=== PATIENT | female | born 1960 | race African-American/Black ===

== ENCOUNTER 2021-01-07 12:30 | Emergency (ER) | payer BC ==
[2021-01-07 13:06] VITALS: TEMP 98.6; BMI 31.0
[2021-01-07] MEDS ORDERED: morphine CARPU-JECT 4 MG/1 ML DISP.SYRIN IVPUSH ONE ×2 (13:11→14:17)
[2021-01-07] MEDS ORDERED: morphine SULFATE 4 MG/ML VIAL ONE ×2 (13:56→14:23)
[2021-01-07 14:12] LABS: BASO % 0.4 % (0-2.0); EOS % 1.7 % (0-4.5); HEMATOCRIT 37.7 % (32.4-45.2); HEMOGLOBIN 12.7 GM/dL (10.7-15.3); LYMPH % 13.7 % (8-40); MCHC 33.8 g/dl (32.0-36.0); MEAN CELL VOLUME 91.6 fl (80-96); NEUT % 77.2 % (42.8-82.8); PLATELET COUNT 407 10^3/uL (134-434); RBC 4.11 M/mm3 (3.60-5.2); RDW 13.5 % (11.6-15.6); WHITE BLOOD COUNT 10.9 K/mm3 (4.0-10.0)
[2021-01-07 14:19] LABS: INR 0.89 (0.83-1.09)
[2021-01-07 14:37] LABS: CALCIUM 9.4 mg/dL (8.5-10.1)
[2021-01-07 14:38] LABS: ALBUMIN 3.3 g/dl (3.4-5.0); BLOOD UREA NITROGEN 12.2 mg/dL (7-18)
[2021-01-07 14:43] LABS: BILIRUBIN,TOTAL 0.7 mg/dL (0.2-1); TOT PROT 8.4 g/dl (6.4-8.2)
[2021-01-07] MEDS ORDERED: KETAMINE HCL 200 MG/20 ML VIAL IVPUSH ONE (14:51)
[2021-01-07] MEDS ORDERED: KETAMINE HCL 200 MG/20 ML VIAL ONE (14:55)
[2021-01-07] MEDS ORDERED: CEFAZOLIN 1 GM/D5W 1 GM/50 ML BAG ONE (15:09)
[2021-01-07] MEDS ORDERED: VANCOMYCIN 1 GRAM (PRE-DOCKED) 1,000 MG/250 ML BAG IVPB ONE (15:13)
[2021-01-07] MEDS ORDERED: VANCOMYCIN 1 GM in D5W (PRE-DOCKED) 1,000 MG/250 ML IVPB ONE (15:15)
[2021-01-07 21:20] VITALS: BP 162/101; PULSE 102
== END 2021-01-07 21:15 | disposition short-term general hospital (02) ==
LOC: JER 12:30
PROC: 3E033GC Introduction of Other Therapeutic Substance into Peripheral Vein, Percutaneous Approach (ICD-10-PCS; principal; 2021-01-07)
DX: S82.851A Displaced trimalleolar fracture of right lower leg, initial encounter for closed fracture (principal); W18.2XXA Fall in (into) shower or empty bathtub, initial encounter
CPT/HCPCS: 36415; 73610-TC-RT-FY; 73630-TC-RT-FY; 80053; 85025; 85610; 86850; 86900; 86901; 99284-25

== ENCOUNTER 2024-02-16 04:11 | Day surgery (SDC) | payer BC ==
[2024-02-11 14:41] VITALS: BMI 34.0
[2024-02-16] MEDS ORDERED: ROCURONIUM BROMIDE 50 MG/5 ML SYRINGE ONE (08:04)
[2024-02-16] MEDS ORDERED: MIDAZOLAM HCL 2 MG/2 ML SINGLE DOSE VIAL ONE ×2 (08:04→08:05)
[2024-02-16] MEDS ORDERED: ETOMIDATE 20 MG/10 ML VIAL IVPUSH ONE (08:08)
[2024-02-16] MEDS ORDERED: ACETAMINOPHEN 325 MG TABLET (FP) PO PRN (08:25)
[2024-02-16] MEDS ORDERED: IBUPROFEN 400 MG TABLET (FP) PO PRN (08:25)
[2024-02-16] MEDS ORDERED: SUGAMMADEX SODIUM 200 MG/2 ML VIAL ONE ×2 (09:04→09:14)
[2024-02-16 11:03] VITALS: RESP 18
[2024-02-16 12:27] VITALS: BP 152/73; PULSE 83; TEMP 97.9
== END 2024-02-16 11:50 | disposition home or self-care (01) ==
LOC: JASU-SURG 04:11
PROVIDERS: ATTEND Obstetrics & Gynecology
PROC: 0UDB8ZX Extraction of Endometrium, Via Natural or Artificial Opening Endoscopic, Diagnostic (ICD-10-PCS; principal; 2024-02-16 07:30)
DX: N84.0 Polyp of corpus uteri (principal); N73.6 Female pelvic peritoneal adhesions (postinfective)
CPT/HCPCS: 86850; 86900; 86901; 88305-TC; 94760